=== PATIENT | male | born 1990 | race African-American/Black ===

== ENCOUNTER → 2019-07-10 | Day surgery (SDC) | payer BC, SELFPAY ==
[~2019-07-10] MED LIST: Bupivacaine 0.25% HCL 30 ML VIAL ONE; Dexamethasone 20 MG/5 ML VIAL ONE; Fentanyl 100 MCG/2 ML VIAL ONE; Glycopyrrolate 0.2 MG/ML 5 ML SYRINGE ONE; HYDROmorphone 0.5 MG/0.5 ML SYRINGE ONE; Ketorolac Tromethamine 30 MG/ML VIAL ONE; Lidocaine 1% PF 5 ML VIAL ONE; Morphine 4 MG/ML VIAL ONE; Ondansetron PF 4 MG/2 ML Vial ONE; PROPOFOL 200 MG/20 ML VIAL ONE; Rocuronium Bromide 10 MG/ML (10ML VIAL) ONE
[2019-07-10 20:08] LABS: #Eosinphils 0.5 thou/uL (0.0-0.7); #Lymphocytes 3.2 thou/uL (1.20-3.40); #Monocytes 1.1 thou/uL (0.11-0.59); #Neutrophils 5.3 thou/uL (1.40-6.50); %Basophils 0.4 % (0.0-1.0); %Eosinophils 4.9 % (0.0-10.0); %Lymphocytes 31.3 % (21.0-51.0); %Monocytes 10.6 % (0.0-10.0); %Neutrophils 52.8 % (42.0-75.0); Hemoglobin 15.2 g/dL (14.0-18.0); Mean Corpuscular HGB CONC 33.7 g/dL (32.0-36.0); Mean Corpuscular Hemoglobin 33.8 pg (27.0-31.0); Mean Platelet Volume 7.3 fL (7.4-10.4); Platelet Count 284 thou/uL (130-400); Red Blood Cell (RBC) Count 4.49 mill/uL (4.70-6.10); White Blood Cell (WBC) Count 10.1 thou/uL (4.8-10.8)
--- NOTE | 2019-07-10 20:09 | RAD ---
XR Hand Rt 3 View STANDARD History: Lawnmower injury Comparison: None. Findings: Traumatic bone and soft tissue amputation through the distal phalanx index finger with abse nt distal one half finger with fracture line extending into the distal interphalangeal joint. There is also traumatic open laceration with fracture through the distal phalanx middle finger with distrac will fragments 6-7 mm with extensive comminution. No extension into the articular surface. Impression: Traumatic soft tissue and bone laceration/amputation as described.
[2019-07-10 20:21] LABS: ALT (SGPT) 60 U/L (8-55); AST (SGOT) 34 U/L (5-34); Albumin 4.5 g/dL (3.5-5.0); Alkaline Phosphatase 94 U/L (40-110); Anion Gap 14 mmol/L (10-20); BUN (Urea Nitrogen) 12 mg/dL (8.9-20.6); Bilirubin, Total 0.9 mg/dL (0.2-1.2); Calc. Creatinine Clearance 0 mL/min (70-130); Calcium 9.5 mg/dL (7.8-10.44); Carbon Dioxide 24 mmol/L (22-29); Chloride 104 mmol/L (98-107); Estimated GFR-MDRD Greater than 90; Globulin 3.2 g/dL (2.4-3.5); Glucose 115 mg/dL (70-105); Potassium 3.3 mmol/L (3.5-5.1); Protein, Total 7.7 g/dL (6.0-8.3); Sodium 139 mmol/L (136-145)
--- NOTE | 2019-07-10 21:07 | RAD ---
XR Chest 1 View Portable History: Preop evaluation Comparison: None. Findings: Lungs are mildly hypoinflated with atelectatic changes. No confluent airspace consolidation , pneumothorax, or effusion. Cardiac silhouette and mediastinal contours are within normal limits. No acute osseous abnormality. Impression: No acute intrathoracic abnormality.
--- NOTE | 2019-07-10 21:35 | HP ---
CHIEF COMPLAINT: Right hand injury. HISTORY OF PRESENT ILLNESS: Mr. Jimenez is a 29-year-old male, who was mowing. He reached under his mower to clear something when he struck his fingers. He injured his 2nd and 3rd fingers. He had a glove on, which was lacerated. He had bleeding. He presented to the emergency department. He was found to have amputation of the distal aspect of the 2nd finger and near amputation with severe injury to the distal aspect of the 3rd digit. I was consulted regarding his hand injury. I recommended we consult a hand surgeon. One was contacted at a different hospital and he recommended completion amputation and did not think these finger tips would be salvageable. I am happy to proceed with this. The patient has had pain, but has received morphine. He is a right-hand dominant. No other injuries. PAST MEDICAL HISTORY: Denies active medical problems. PAST SURGICAL HISTORY: [place] tooth surgery. ALLERGIES: NO KNOWN DRUG ALLERGIES. SOCIAL HISTORY: The patient denies tobacco, alcohol, or drug use. FAMILY MEDICAL HISTORY: Noncontributory. IMAGES: X-rays demonstrate soft tissue defect as well as bony defect. There is amputation of the distal aspect of the 2nd digit at the distal phalanx. There is also distal phalanx fracture and loss of the distal phalanx of the third digit. PHYSICAL EXAMINATION: VITAL SIGNS: Stable. The patient is alert, sitting upright, in no apparent distress. RESPIRATORY: Breathing comfortably. CARDIOVASCULAR: Pulses palpable and regular. MUSCULOSKELETAL: The patient's right hand has amputation of the 2nd digit just past the DIP joint. He has a mangled 3rd digit past the DIP joint. The finger tip is dusky and nonviable. He does not feel the finger tip. There is no active arterial bleeding. IMPRESSION: Partial finger amputation 2nd and 3rd digits, right hand. PLAN: At this point, the patient will need to go to the operating room for irrigation and debridement of the fingers with completion of fingertip amputation. Our goal will be to close the wounds. He is aware that his fingers will be shortened. He is aware that these are not salvageable at the finger tip. He is aware of prolonged recovery process and risk for infection and other risks. He will have intravenous antibiotics here today and can be discharged with home oral antibiotics and pain control. I would like to see him back in the clinic in 5 to 7 days. Job ID: [id number]
--- NOTE | 2019-07-10 22:27 | OP ---
DATE OF PROCEDURE: 07/10/2019 PROCEDURE PERFORMED: Completion of amputation of 2nd and 3rd digit on the right hand. PREOPERATIVE DIAGNOSIS: Partial amputation of 2nd and 3rd digit from lawnmower accident. POSTOPERATIVE DIAGNOSIS: Partial amputation of 2nd and 3rd digit from lawnmower accident. COMPLICATIONS: None. ESTIMATED BLOOD LOSS: Minimal. ANESTHESIA: General. IMPLANTS: None. INDICATIONS FOR PROCEDURE: Mr. Jimenez is a 29-year-old male, who injured his hand while mowing the lawn. He sustained amputation of the distal aspect of the 2nd digit and near complete amputation of the distal aspect of the 3rd digit. He was indicated for irrigation and debridement with completion of amputation and wound closure. Risks have been reviewed. He elected to proceed with the operation. DESCRIPTION OF PROCEDURE: The patient was identified in the preoperative holding area. His correct extremity was marked. He was carried to the operating room. He was positioned supine. General anesthesia was induced. A multidisciplinary time-out was performed. The right upper extremity was prepped and draped in sterile fashion. We began the procedure with exploration of the wound. There were some contamination and graft type material in the wound. This was completely debrided. We trimmed the skin edges. The 2nd finger flap of palmar tissue was trimmed. We rongeured back the bone to an acceptable level for closure. After another final debridement and irrigation, we closed the 2nd digit using our palmar flap of skin. Next, we moved to the third digit. Again, we shortened the bone slightly. We completed the amputation of the mangled aspect of the third digit. We obtained a clean flap of tissue. We obtained good bony coverage. We thoroughly irrigated and closed appropriately the 3rd digit. There was no exposed bone or underlying tissue. At this point, a sterile dressing was applied. The patient was taken to the recovery room in good condition without complication. Job ID: [id number]
== END ==
LOC: ERS 19:29 → SDC/OP 20:16
PROVIDERS: ATTEND Surgery
PROC: 0X6Q0Z0 Detachment at Right Middle Finger, Complete, Open Approach (ICD-10-PCS; principal; 2019-07-10)
PROC: 0X6N0Z0 Detachment at Right Index Finger, Complete, Open Approach (ICD-10-PCS; principal; 2019-07-10)
DX: S68.120A Partial traumatic metacarpophalangeal amputation of right index finger, initial encounter (principal); S68.122A Partial traumatic metacarpophalangeal amputation of right middle finger, initial encounter; Z88.8 Allergy status to other drugs, medicaments and biological substances; Z91.013 Allergy to seafood; W28.XXXA Contact with powered lawn mower, initial encounter
CPT/HCPCS: 36415; 71045; 80053; 85025; 86850; 86900; 86901; 93005; 96365; 96375; G0390; J0690; J1100; J1170; J1885; J2001; J2270; J2405; J2704; J3010; S0020

== ENCOUNTER 2020-04-09 08:41 | Emergency (ER) | payer OTHER ==
[2020-04-09] MEDS ORDERED: Dexamethasone 10 MG/ML VIAL ONE (09:43)
== END 2020-04-09 09:53 | disposition home or self-care (01) ==
LOC: ERS 08:41
DX: M54.12 Radiculopathy, cervical region (principal)
CPT/HCPCS: 99283; J1100